=== PATIENT | male | born 1980 | race Caucasian/White ===

== ENCOUNTER 2021-05-13 22:49 | Inpatient (IN) | payer OTHER ==
[~2021-05-13] VITALS: Ht 182.9 cm; Wt 68.0 kg
--- NOTE | ~2021-05-13 | HC ---
[facility] [address] [place] [address] CONSULTATION Name: REFUGIO BOBBY Room #: 361-P [facility] IN ..#: [id number] Admission: 05/14/21 Attend Phys: Dima Shipman MD Discharge: Date of : 76 Report #: [id number] THIS REPORT FOR: cc: FAM - Family physician unknown FAM - Family physician unknown Joaquim Ramos MD ~ DATE OF SERVICE: 05/16/2021 HISTORY OF PRESENT ILLNESS: The patient is a 40-year-old white male who was admitted with chest pain, stuttering or dysarthric speech and left arm tremor and weakness. CTA was negative. MRI of the brain was negative. He was noted to have a history of paroxysmal atrial fibrillation, now in normal sinus rhythm. Neurology is involved. We are seeing him in rehabilitation medicine consultation. 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 He was placed on Eliquis for atrial fibrillation. There is prior history of a loop recorder that is noted and he also was noted to have an ORIF of the right femur and a colostomy takedown. MEDICATIONS: Please see the full medication listing. 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 He lives with a female significant other and their 4-year-old daughter. The female significant other is a traveling nurse and the 4-year-old daughter is currently staying with the significant other's mother. The patient did not utilize an assistive device, premorbidly. REVIEW OF SYSTEMS: No current complaints of chest pain, shortness of breath or abdominal discomfort. PHYSICAL EXAMINATION: GENERAL: A 40-year-old male, in no obvious distress. VITAL SIGNS: Temperature 36.9, pulse 80, respirations 16, blood pressure 126/88. HEENT: He has poor dentition. Facies appeared symmetric. NEUROLOGIC: He is alert, oriented. He has stuttering type of speech. He has continuous tremoring of the left upper extremity with the hand in a fisted position. I was able to loosen the fingers and taken through gentle passive range of motion, but he continued with the tremoring. It was not a pill rolling tremor and the tone was not increased, but the tremulousness was throughout the left upper extremity proximal and distal. He had functional range of motion. Strength was somewhat difficult to test as he had difficulty doing volitional manual muscle testing because of the tremoring. He had functional range of [facility] [address] [place] [address] CONSULTATION Name: REFGUIO BOBBY Room #: 361-[facility] IN M.R.#: [id number] Admission: 05/14/21 Attend Phys: Dima Shipman MD Discharge: Date of : 76 Report #: [id number] motion and strength of the right upper extremity and right lower extremity. Left lower extremity, there was no tremoring, but he was noted to have some weakness, probably a grade 4-/5 to 4/5. Tone appeared to be intact, left lower extremity as well as right upper and lower extremity. Functionally, he was min assist sit to stand and gait was min assist 14 feet, pushing the IV. ASSESSMENT: A 40-year-old white male with the following problem list: 1. Left upper extremity tremor with stuttering/dysarthria of uncertain etiology. Noted to have stroke-like symptoms with dysarthria and left upper extremity weakness with a history of transient ischemic attacks. Neurology is involved. 2. Chest pain. Cardiology has been involved. He is noted to now be in normal sinus rhythm. 3. Atrial fibrillation in the past, has been on long-term anticoagulation. 4. Hypertension. 5. Hyperlipidemia. 6. Prior history of hemiplegic migraine per report. 7. History of cholecystectomy. PLAN: Occupational therapy is to evaluate. We will need to see how he does in physical therapy. Neurologic workup is still underway. Cardiology is assisting. We will need to see how he does in his therapies and further assess his rehab needs from there. We will be glad to follow along with you. By: [id number] Joaquim Ramos MD /nt
[~2021-05-13 22:49] MED LIST: APAP500 PO; ASPIR-LOW81 MG PO; ASPIRIN EC325 M1 PO; ASPIRIN325 PO; BACTRIM DS TAB1 EACH PO; CIPRO500 MG PO; CIPROFLOXACIN500 M1 PO; COLACE100 MG PO; EXCEDRIN MIGRA1 EAC1 PO; FLAGYL500 MG PO; FLECAINIDE ACE100 MG PO; FLECAINIDE ACE150 MG PO; FLECAINIDE ACET50 M2 PO; FLEXERIL PO; FLORINEF ACETA0.1 MG PO; HYDROCODON-ACE1 EAC7 PO; HYDROCODONE-AP1 EAC6 PO; IBUPROFEN 200200 M1; IBUPROFEN 200200 M1 PO; KEFLEX500 MG PO; LANOXIN 0.120.125 M1 PO; LANOXIN 0.250.25 M1 PO; MEDROLDOSEPACK PO; METOPROLOL SUCC25 M1 PO; NAPROSYN500 MG PO; NICOTINE TRANSD14 M1 TRANSDERM; NORCO 5-325 TA1 EACH PO; ONDANSETRON HCL4 M2 PO; PAXIL10 MG; PERCOCET 5-3251 EACH PO; PHENERGAN 25 MG25 M1 PO; PROMS25 WY RECTAL; REGLAN 10 MG TA10 MG PO; TRAMADOL 50 MG50 MG PO; TYLOPHEN500 MG; XARELTO1 EACH PO; ZOFRAN ODT4 MG PO; [UNRECOGNIZED DRUG - REMARK]
[2021-05-13 23:17] VITALS: BP 164/91
[2021-05-13 23:22] LABS: ABSOLUTE NEUTROPHILS 5.1 thou/uL (1.4-8.2); BASOPHILS 0.6 % (0.0-2.0); EOSINOPHILS 0.7 % (0.0-3.0); HEMATOCRIT 41.8 % (42.0-52.0); HEMOGLOBIN 14.2 gm/dL (14.0-18.0); LYMPHOCYTES 27.7 % (24.0-44.0); MCH 29.9 pg (26.0-34.0); MCHC 33.9 g/dL (28.0-37.0); MCV 88.3 fL (80.0-100.0); MONOCYTES 10.4 % (1.0-8.0); PLATELET COUNT 240 thou/uL (150-400); POLYS 60.6 % (36.0-66.0); RBC 4.74 mil/uL (4.50-6.00); RDW 13.2 % (10.5-14.5); WBC 8.3 thou/uL (4.0-11.0)
[2021-05-13 23:27] LABS: CALCIUM 8.5 mg/dL (8.5-10.1); POTASSIUM 3.3 mmol/L (3.5-5.1)
[2021-05-13 23:37] LABS: ALBUMIN 3.7 g/dL (3.4-5.0); TOTAL BILIRUBIN 0.4 mg/dL (0.2-1.0); TOTAL PROTEIN 6.6 g/dL (6.4-8.2)
[2021-05-13 23:39] LABS: APTT 24.6 Seconds (24.5-32.8); PROTIME 10.9 Seconds (10.5-12.1)
[2021-05-14 06:25] LABS: CHOLESTEROL 130 mg/dL (<200); HDL CHOLESTEROL 34 mg/dL (>40); LDL CHOLESTEROL 76 mg/dL (<100); TC:HDL 3.8 Ratio (Not establshd); TRIGLYCERIDE 100 mg/dL (<150); VLDL 20 mg/dL (<40)
[2021-05-14 07:52] VITALS: BP 109/67
[2021-05-14 08:10] VITALS: BP 140/93
[2021-05-14] MEDS ORDERED: ELIQUIS5 MG PO (09:37)
[2021-05-14 09:51] LABS: HEMOGLOBIN 14.7 gm/dL (14.0-18.0); MCH 29.9 pg (26.0-34.0); MCHC 33.3 g/dL (28.0-37.0); MCV 89.6 fL (80.0-100.0); RBC 4.91 mil/uL (4.50-6.00); RDW 13.3 % (10.5-14.5); WBC 6.7 thou/uL (4.0-11.0)
[2021-05-14 10:00] LABS: CALCIUM 8.4 mg/dL (8.5-10.1); CREATININE 0.9 mg/dL (0.7-1.3); MAGNESIUM 2.2 mg/dL (1.8-2.4)
[2021-05-14 10:11] LABS: POTASSIUM 4.3 mmol/L (3.5-5.1)
--- NOTE | 2021-05-14 11:33 | NUR ---
REFERRAL FOR DR. MAGUIRE RECEIVED. CHART REVIEWED WITH DR. MAGUIRE BY EMS MANAGER THIS DATE. PATIENT DOES HAVE PT/OT ORDERS BUT NO EVALUATIONS COMPELTED AT THIS TIME. CHART ALSO INDICATES PATIENT IS PATIENT PAY. WILL REVIEW PATIENT AGAIN ON SUNDAY, MAY 16, AND ALSO GET FURTHER CLAIRIFICATION TO PATIENT'S PAYOR SOURCE AT THAT TIME.
[2021-05-14 11:40] VITALS: BP 134/85
--- NOTE | 2021-05-14 13:59 | NUR ---
ADMISSION NOTE: PT ADMIITED ON 361, ALERT AND ORIENTED X4, SPEECH SLURRED. LEFT ARM WEAKNESS, PT ON ABLE TO GROUP ACTIVITIES AIDE OR MOVE ARM. TREMORS ON THE ARM. PT STATED HIS LEFT EYE IS A LITTLE BIT BLURRY WELL. NIHS SCALE ASSESSMENT BEING DONE EVERY 4 HOURS. ASSESSMENT AND ADMISSION COMPLETED. SKIN INTACT. IV FLUIDS RUNNING PER ORDER. PT HAS AN ORDER FOR MRI, ROUTINE. WAITING ON DR. CONTE TO COME SEE PT. PT USES URINAL. FALL PRECAUTIONS IN PLACE. PT PARTNER CALLED AND MESSAGE LEFT PER PT REQUEST. DENIES ANY NEEDS MARK, WILL CONTINUE TO MONITOR
[2021-05-14 15:17] VITALS: BP 132/82
[2021-05-14 20:03] VITALS: BP 131/88
[2021-05-14 23:32] VITALS: BP 137/71
--- NOTE | 2021-05-15 02:17 | NUR ---
PT ALERT AND ORIENTED X4. VSS AFEBRILE. UNLABORED ON RA. NO C/O PAIN. NO S/S DISTRESS. SPEECH IS SLURRED. LEFT ARM WEAKNESS NOTED AND MILD WEAKNESS NOTED TO LLE. PT AWARE OF FALL PRECAUTIONS. C/O LOPEZ. MEDICATED WITH 2 TYLENOL. PT FELL ASLEEP SHORTLY AFTER. SEE NIH RESULTS. BED DOWN CALL LIGHT IN REACH. WILL CONTINUE TO MONITOR PT FOR CHANGES.
[2021-05-15 04:08] LABS: HEMATOCRIT 44.6 % (42.0-52.0); HEMOGLOBIN 14.9 gm/dL (14.0-18.0); MCH 29.6 pg (26.0-34.0); MCHC 33.4 g/dL (28.0-37.0); MCV 88.6 fL (80.0-100.0); RBC 5.04 mil/uL (4.50-6.00); RDW 13.5 % (10.5-14.5); WBC 7.4 thou/uL (4.0-11.0)
[2021-05-15 04:22] LABS: CALCIUM 8.2 mg/dL (8.5-10.1); CREATININE 0.8 mg/dL (0.7-1.3); POTASSIUM 3.9 mmol/L (3.5-5.1)
[2021-05-15 05:59] VITALS: BP 108/62
--- NOTE | 2021-05-15 07:24 | NUR ---
VSS AFEBRILE THIS AM. PT DENIED FEELING ANY CHANGES THIS AM. NIH REMAINS UNCHANGED.
[2021-05-15 08:53] VITALS: BP 103/62
[2021-05-15 12:07] VITALS: BP 129/84
[2021-05-15 15:14] VITALS: BP 141/92
--- NOTE | 2021-05-15 15:26 | NUR ---
PT ALERT AND ORIENTED TIMES FOUR VSS. IVF INFUSING PER ORDER. PT DENIES PAIN/SOA. PT TOLERATES MEDS AND MEALS. NIH SCORE 5. WILL CONTINUE TO MONITOR.
[2021-05-15 19:28] VITALS: BP 128/83
--- NOTE | 2021-05-15 21:32 | 2DMMODE ---
[facility] [place] [address] 2 D/M-MODE ECHOCARDIOGRAM Name: REFUGIO BOBBY Room #: 361-P ADM IN M.R.#: [id number] Admission: 05/14/21 Attend Phys: Giovanna Madsen Discharge: Date of : 78 Report #: [id number] THIS REPORT FOR: cc: FAM - Family physician unknown FAM - Family physician unknown Tl Colon MD [facility] ~ APPROVED REPORT Study performed: 05/14/2021 11:38:23 EXAM: Comprehensive 2D, Doppler, and color-flow Echocardiogram Patient Location: In-Patient Room #: 361 Status: routine BSA: 2.35 HR: 69 bpm BP: 140/93 mmHg Rhythm: NSR Other Information Study Quality: Adequate Indications CVA/TIA Atrial Fibrillation Chest Pain 2D Dimensions LVEF(%): 46.00 (>50%) IVSd: 1.00 (7-11mm) LVOT Diam: 2.30 (18-24mm) LVDd: 5.70 mm PWd: 0.70 (7-11mm) Ascending Ao: 3.50 (22-36mm) LVDs: 4.30 (25-40mm) Left Atrium: 3.40 (27-40mm) Aortic Root: 3.10 mm Volumes Left Atrial Volume (Systole) Biplane LA Volume: 42.00 mL LA ESV Index: 17.67 mL/m2 Aortic Valve AoV Peak Romain.: 1.49 m/s LVOT Max V: 0.85 m/s [facility] [address] [place] [address] 2 D/M-MODE ECHOCARDIOGRAM Name: DIAMANTEREFUGIO Room #: 361-P [facility] IN .R.#: [id number] Admission: 05/14/21 Attend Phys: Giovanna Smith Discharge: Date of : 78 Report #: [id number] Mitral Valve E/A Ratio: 1.5 MV E Max Romain.: 0.85 m/s MV A Romain.: 0.58 m/s TDI E/Medial E': 7.08 E': 0.17 Medial E' Romain.: 0.12 m/s Pulmonary Valve PV Peak Romain.: 0.96 m/s Tricuspid Valve TR Peak Romain.: 2.45 m/s RAP Estimate: 7.00 mmHg TR Peak Gr.: 23.98 mmHg RVSP: 30.00 mmHg Left Ventricle Left ventricle is borderline dilated. There is normal LV segmental wall motion. There is normal left ventricular wall thickness. Left ventricular systolic function is normal. The left ventricular ejection fraction is within the normal range. LVEF is 45-50%.global Right Ventricle The right ventricle is normal size. The right ventricular systolic function is normal. Atria The left atrium size is normal. The right atrium size is normal. Aortic Valve The aortic valve is normal in structure. No aortic regurgitation is present. There is no aortic valvular stenosis. Mitral Valve The mitral valve is normal in structure. There is no mitral valve regurgitation noted. No evidence of mitral valve stenosis. Tricuspid Valve The tricuspid valve is normal in structure. Trace to mild tricuspid regurgitation. PAP 30 mmHg Pulmonic Valve The pulmonary valve is normal in structure. Trace to mild pulmonic regurgitation. [facility] [address] [place] [address] 2 D/M-MODE ECHOCARDIOGRAM Name: REFUGIO BOBBY Room #: 361-P [facility] IN .R.#: [id number] Admission: 05/14/21 Attend Phys: Giovanna Smith Discharge: Date of : 78 Report #: [id number] Great Vessels The aortic root is normal in size. IVC is normal in size and collapses >50% with inspiration. Pericardium There is no pericardial effusion. There is no pleural effusion. <Conclusion> Left ventricle is borderline dilated. LVEF is 45-50%.global The right ventricle is normal size. The left atrium size is normal. The aortic valve is normal in structure. There is no mitral valve regurgitation noted. Trace to mild tricuspid regurgitation. PAP 30 mmHg The aortic root is normal in size. There is no pericardial effusion. <ELECTRONICALLY SIGNED> By: Tl Colon MD, FACC 05/15/212131 31 2132 Tl Colon MD, FACC /INF
--- NOTE | 2021-05-16 00:19 | NUR ---
PT ALERT AND ORIENTED X4. VSS AFEBRILE. SPEECH STILL SLURRED. TREMOR NOTED TO LEFT ARM WHEN PT REALIZED NS WAS IN THE ROOM. PT STATES HE CAN NOT RAISE LEFT ARM. DAY SHIFT NS STATED IN REPORT SHE SAW HIM MOVE HIS LEFT ARM AND CAN LIFT IT. FOR ME HE WOULD NOT LIFT IT OFF BED. THIS WAS NOT A CHANGE FROM YESTERDAY. YESTERDAY HE STATED HE HAD NO SENSATION FROM LEFT SHOULDER DOWN TO FINGER TIPS WHICHIS THE SAME FOR MY CURRENT NIH ASSESMENTS TONIGHT. SLIGHT LLE DRIFT NOTED YET PT IS ABLE TO AMBULATE TO BATHROOM ACCORDING TO NS ON DAY SHIFT. PT C/O COUGH. COUGH MEDICINE GIVEN AND PAIN PILLS FOR UMBILICAL AREA PAIN PT STATED FROM COUGHING. PT FELL ASLEEP AFTER PAIN MEDS. WILL CONTINUE TO MONITOR PT FOR CHANGES.
[2021-05-16 01:06] LABS: GLYCOHEMOGLOBIN (HGB A1C) 5.1 % (4.8-5.6)
[2021-05-16 05:37] VITALS: BP 135/67
--- NOTE | 2021-05-16 07:25 | EKG ---
[address] [address] ELECTROCARDIOGRAM REPORT Name: REFUGIO BOBBY MARCIN Room #: 361-P ADM IN M.R.#: [id number] Admission: 05/14/21 Attend Phys: Giovanna Madsen Discharge: Date of : 78 Report #: [id number] [facility] ED Test Date: 2021-05-13 Test Time: 23:02:54 Pat Name: REFUGIO BOBBY Department: Room: 361 Gender: M Kaia[place]: paula : 1980 Requested By: Carlitos Spivey Order Number: [id number] MD: Joss Caceres Measurements Intervals [place] Rate: 101 P: [place]: QRS: 72 QRSD: 104 T: 61 QT: 354 QTc: 459 Interpretive Statements SINUS TACHYCARDIA Borderline repolarization abnormality Artifact in lead(s) I,III,aVR,aVL,aVF,V2 and baseline wander in lead(s) I,II,III,aVR,aVF,V2,V3,V4 Compared to ECG 09/07/2015 00:45:09 ST (T wave) deviation no longer present Electronically Signed On 05-16-2021 7:25:11 CDT by Joss Caceres [email or web address] <ELECTRONICALLY SIGNED> By: Joss Caceres MD, FACC 05/16/21 0725 01 01 Joss Caceres MD, FACC /EPI
--- NOTE | 2021-05-16 07:26 | EKG ---
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
[2021-05-16 07:43] VITALS: BP 126/88
--- NOTE | 2021-05-16 08:44 | NUR ---
LAST NIH ASSESSMENT PT WAS ABLE TO HOLD LLE UP WITH NO DRIFT. NO OTHER CHANGES IN ASSESSMENT.
[2021-05-16 11:52] VITALS: BP 140/91
--- NOTE | 2021-05-16 14:34 | NUR ---
CARE ASSUMED THIS AM, PT ALERT AND ORIENTED X4, DENIES ANY PAIN. CONTINUES TO HAVE LEFT ARM WEAKNESS AND TREMORS. CONTINUE TO HAVE NUMBNESS AND TINGLING ON THAT ARM. NIH AROUND 5. UP TO BATHROOM WITH 1 ASSIST. DENIES ANY NEEDS , WILL CONTINUE TO MONITOR
[2021-05-16 14:36] VITALS: BP 127/72
--- NOTE | 2021-05-16 15:52 | NUR ---
INITIAL ASSESSMENT: Received consult for discharge planning. Pt was admitted from home due to possible CVA. Pt with left sided weakness. Neuro and psych consulted. 5N is following for possible admission to in acute rehab. Pt does not have health insurance. [employer] [facility] to screen pt for possible Medicaid application. Pt is alert/orientated x 4. Prior to admission, pt was independent with ADLs. No use of DME. Pt is employed and lives at home with family. Pt's s/o is a nursing that is completing a travel assignment and is not currently in town. Awaiting input from neuro and psych. DANELLE discussed case with occupational rehabilitation aide. SW is following to assist as needed with discharge planning.
[2021-05-16 19:35] VITALS: BP 114/81
[2021-05-17 04:05] VITALS: BP 112/75
--- NOTE | 2021-05-17 05:14 | NUR ---
Patient making slow progress towards outcome goals. Neuro unchanged. Awaiting records from . Right thigh pain treated with Tylenol and heating pad, patient now asleep. Vital signs stable. High fall risks, fall precautions in place.
[2021-05-17 07:46] VITALS: BP 125/80
[2021-05-17 10:13] LABS: HEMATOCRIT 46.7 % (42.0-52.0); HEMOGLOBIN 15.7 gm/dL (14.0-18.0); MCH 29.6 pg (26.0-34.0); MCHC 33.5 g/dL (28.0-37.0); MCV 88.4 fL (80.0-100.0); RBC 5.29 mil/uL (4.50-6.00); RDW 13.6 % (10.5-14.5); WBC 6.3 thou/uL (4.0-11.0)
--- NOTE | 2021-05-17 11:50 | NUR ---
SW reviewed chart and spoke with nursing and attending physician. Psych consult pending. Pt is progressing towards goals for discharge. [employer] to screen pt for [place]-Medicaid application. Discharge home is anticipated for tomorrow. SW to follow up with pt to discuss discharge plan.
[2021-05-17 15:07] VITALS: BP 118/58
--- NOTE | 2021-05-17 17:57 | NUR ---
67 M, PT AOX4, MOVING ALL EXTREMITIES, AMBULATING IN THE ROOM W/ MINIMAL ASSISTANCE. SEEN BY PT.
[2021-05-17 19:52] VITALS: BP 114/72
[2021-05-18 04:37] VITALS: BP 94/54
[2021-05-18 07:16] VITALS: BP 119/68
--- NOTE | 2021-05-18 07:39 | NUR ---
Pt. requested sleep med .LANGUAGE THERAPIST notified and order received. Melatonin given with some help. Still has left arm tremors and speech is clear. Aware that he needs to call for assistance if needed. Tolerating room air well with no respiratory distress. Hoping to go home today. Making progress towards care plan goals.
[2021-05-18] MEDS ORDERED: METOPROLOL SUCC25 M1 PO (07:57)
--- NOTE | 2021-05-18 10:09 | EEG ---
[facility] [address] [place] [address] ELECTROENCEPHALOGRAM Name: REFUGIO BOBBY Room #: 361-P ADM IN M.R.#: [id number] Admission: 05/14/21 Attend Phys: Dima Shipman MD Discharge: Date of : 78 Report #: [id number] THIS REPORT FOR: //name// DATE OF SERVICE: 05/14/2021 This patient is being evaluated for tremors. EEG was done by placing the electrode by standard 10-20 system of electrode placement. Both referential and sequential montages were used for recording. Background activity in this patient's EEG is about 11 Hz and 40 microvolt. There is a symmetrical activity. Photic stimulation is unremarkable. The patient became drowsy that is associated with bilateral slowing and vertex sharp waves. Throughout the record, no active epileptiform activity was noticed. IMPRESSION: This patient's EEG is unremarkable. Thank you very much for this referral. <ELECTRONICALLY SIGNED> By: Gage Farmer MD 05/18/21 1009 0854 0905 Gage Farmer MD /nt
--- NOTE | 2021-05-18 10:09 | HC ---
[facility] [place] [address] CONSULTATION Name: REFUGIO BOBBY Room #: 361-P ADM IN .R.#: [id number] Admission: 05/14/21 Attend Phys: Dima Shipman MD Discharge: Date of : 78 Report #: [id number] THIS REPORT FOR: cc: FAM - Family physician unknown FAM - Family physician unknown Gage Farmer MD ~ DATE OF SERVICE: 05/14/2021 DATE OF SERVICE: 05/14/2021 HISTORY OF PRESENT ILLNESS: This is a 40-year-old male patient who was evaluated by me for somewhat of an unusual history. He gives a history that he had a stroke. He said he was at [facility], but I do not have any records in that regard. As I understand from him it cause him hemianopsia on the left side, which partly recovered, but he continued to have some residual problem with that. He said he was started on anticoagulation, but anticoagulation was discontinued. I asked him why it was discontinued if he had any atrial fibrillation and his stroke. He said he did not know. In any event, anticoagulation was restarted recently. He said he did not have any stroke that time when it was started, but he does not know why it was started. Now, he is admitted with pretty unusual kind of symptoms. He was complaining of some chest pain. He said his speech is affected. He said he had left arm weakness and left arm tremor. He presented to Emergency Room with these symptoms yesterday evening. He was admitted from the Emergency Room and those notes were reviewed and today routine neurological consultation was requested for further neurological suggestions. He said his speech was normal yesterday and these symptoms started yesterday evening and he was taking his Eliquis faithfully. He is complaining of tremor on the left side and he is complaining that he cannot talk properly. He also has chest pain. REVIEW OF SYSTEMS: Indicates he said he was at work when it happened. He denies any history of anxiety and depression. He said he had migraine and the records indicate that he had hemiplegic migraine. He does not know anything about it. He said he had TIAs in the past, even before he had occipital lobe stroke, but he does not know how the TIA affected him. He had a history of cholecystectomy, upper respiratory infection, high cholesterol. He has some metal rods and a loop recorder, but I do not know how. He has all those things if he has a documented atrial fibrillation and why he has that. This was his relevant 14-point review of system. PAST MEDICAL HISTORY: Positive for occipital lobe CVA. FAMILY HISTORY: Negative for any early age stroke. SOCIAL HISTORY: He says he does not smoke. [facility] [address] [place] [address] CONSULTATION Name: REFUGIO BOBBY Room #: 361-P [facility] IN M.R.#: [id number] Admission: 05/14/21 Attend Phys: Dima Shipman MD Discharge: Date of : 76 Report #: [id number] PHYSICAL EXAMINATION: Indicates he was sleepy, but he woke up. When he woke up, he was able to talk and communicate. He provided his own history. He knew what month it was. Cranial nerve examination, he says he has visual deficit on the left visual field, difficult for me to confirm. He moves all 4 extremities, but he is having almost a constant tremor on the left side. That makes it difficult to check the strength. His sensation the best I can tell position sense appear intact. His reflexes look symmetrical. There is really no meningeal sign in this patient. I could not look at the fundus. Cardiac examination appear noncontributory. There is no respiratory difficulty. VITAL SIGNS: Blood pressure is 132/82, respirations 16, pulse is 96, temperature is 98.4. IMPRESSION AND PLAN: Pretty confusing history in this patient. He claims that he had an occipital lobe stroke, secondary to atrial fibrillation, but then after being on anticoagulation for some time, it was discontinued. That is a pretty unusual history because that is typically an indication for lifelong anticoagulation, especially if he had TIAs in the past also. Then, his history is further confusing because he had chest pain and he has a tremor. Those things can occur with a brainstem stroke, but not the chest pain, not this kind of tremor is very typical for that. This patient needs further workup to address all his questions. The best test will be an MRI. He had a plate and question of a loop recorder. I have called the MRI people and asked him to check with Radiology to see if MRI can be done. If MRI can be done, then I would like to get an MRI done to clarify the situation and we may have to get the record from [facility] also. When he came to Emergency Room, he was on anticoagulation and therefore, he was not a TPA candidate. They did a CT angiogram, which showed no large vessel occlusion and therefore, he was not a candidate for any intervention. The main workup would be directed to clarify the diagnosis and give him some future direction. Thank you very much for this referral. <ELECTRONICALLY SIGNED> By: Gage Farmer MD 05/18/21 1009 1526 Gage Farmer MD /kristyn
--- NOTE | 2021-05-18 14:10 | NUR ---
SW reviewed chart and spoke with nursing and attending physician. Pt is progressing towards goals for discharge. Ortho consulted today and xray taken earlier today. Pt may be ready to discharge home later today. DANELLE met with pt at bedside. Introduced role of SW. Pt is alert/orientated x 4. Pt reports he lives at home. Pt's girlfriend is a leisure travel agent and is currently in [place]. She will be home tomorrow. SW discussed discharge needs with pt. Pt confirms he does not have health insurance. [employer] to screen pt. Prior to admission, pt was independent with ADLs. No use of DME. Pt does not currently have a PCP. SW offered to have meds filled at [facility] pharmacy when discharged. Pt requests to have scripts sent to the [facility] in [place]. Pt will need a cab ride home if discharged today. Cab Voucher # [id number] provided. Health Resource Guide provided for pt to review, to establish primary care. No additional SW needs identified at this time, but is available to assist should needs arise.
[2021-05-18 15:28] VITALS: BP 127/72
[2021-05-18] MEDS ORDERED: VITAMIN D3250 MC2 PO (15:43)
[2021-05-18 15:59] VITALS: BP 127/72
--- NOTE | 2021-05-18 16:26 | NUR ---
DISCHARGE NOTE: DISCHARGE INSTRUCTIONS WENT THOUGH WITH PT, AWARE OF NEW MED INFO. PT IS AWARE OF OUTPT APPOINTMENT. ALL BELONGING WITH PT. IV D/C. DENIES ANY QUESTIONS.
== END 2021-05-18 16:21 | disposition home or self-care (01) | DRG 93 ==
LOC: ER 22:49 → EROBS 05-14 01:02 → 3W 05-14 01:02
PROVIDERS: Emergency Medicine; Nurse Practitioner Adult Health; Nurse Practitioner Family; ADMIT Internal Medicine; ATTEND Internal Medicine
DX: R47.1 Dysarthria and anarthria (principal); E78.00 Pure hypercholesterolemia, unspecified; S70.11XA Contusion of right thigh, initial encounter; K21.9 Gastro-esophageal reflux disease without esophagitis; E78.5 Hyperlipidemia, unspecified; I10 Essential (primary) hypertension; E87.6 Hypokalemia; R25.1 Tremor, unspecified; R47.81 Slurred speech; I48.0 Paroxysmal atrial fibrillation; Z20.822 Contact with and (suspected) exposure to COVID-19; Z86.73 Personal history of transient ischemic attack (TIA), and cerebral infarction without residual deficits; Z90.49 Acquired absence of other specified parts of digestive tract; Z93.3 Colostomy status; Z87.891 Personal history of nicotine dependence; Z88.8 Allergy status to other drugs, medicaments and biological substances; Z79.01 Long term (current) use of anticoagulants; X58.XXXA Exposure to other specified factors, initial encounter; Y93.89 Activity, other specified; Y92.89 Other specified places as the place of occurrence of the external cause; Y99.8 Other external cause status
CPT/HCPCS: 10779; 10879

== ENCOUNTER 2021-06-21 17:55 | Emergency (ER) | payer OTHER ==
[~2021-06-21] VITALS: Ht 180.3 cm; Wt 104.3 kg
[~2021-06-21 17:55] MED LIST changes: +ELIQUIS5 MG PO; +VITAMIN D3250 MC2 PO
[2021-06-21 19:02] LABS: ABSOLUTE NEUTROPHILS 11.6 thou/uL (1.4-8.2); BASOPHILS 0.7 % (0.0-2.0); EOSINOPHILS 0.2 % (0.0-3.0); HEMATOCRIT 43.7 % (42.0-52.0); HEMOGLOBIN 14.5 gm/dL (14.0-18.0); LYMPHOCYTES 9.4 % (24.0-44.0); MCH 28.9 pg (26.0-34.0); MCHC 33.3 g/dL (28.0-37.0); MONOCYTES 7.2 % (1.0-8.0); PLATELET COUNT 247 thou/uL (150-400); POLYS 82.5 % (36.0-66.0); RBC 5.03 mil/uL (4.50-6.00); RDW 13.2 % (10.5-14.5); WBC 14.1 thou/uL (4.0-11.0)
[2021-06-21 19:16] LABS: CALCIUM 8.7 mg/dL (8.5-10.1); CREATININE 0.9 mg/dL (0.7-1.3); POTASSIUM 3.5 mmol/L (3.5-5.1)
[2021-06-21] MEDS ORDERED: XANAX 0.5 MG0.5 MG PO (19:23)
[2021-06-21 20:01] VITALS: BP 130/83
--- NOTE | 2021-06-22 08:48 | EKG ---
[place] [address] 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
--- NOTE | 2021-06-22 08:50 | EKG ---
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: mpark : 1980 Requested By: Jordy Abbott Order Number: [id number] MD: González Torres Measurements Intervals [place] Rate: 100 P: 0 [place]: 61 QRS: 152 QRSD: 149 T: 27 QT: 330 QTc: 426 Interpretive Statements Marked baseline artifact limits interpretation Sinus rhythm Compared to ECG 06/21/2021 17:59:56 No significant change was found Electronically Signed On 06-22-2021 8:50:38 SENIOR TERADATA DEVELOPER by González Torres [email or web address] <ELECTRONICALLY SIGNED> By: González Torres MD, [facility] 06/22/21 0850 [id number] González Torres MD, FACC /EPI
== END 2021-06-21 20:22 | disposition home or self-care (01) ==
LOC: ER 17:55
PROVIDERS: Emergency Medicine
DX: R00.2 Palpitations (principal); I48.91 Unspecified atrial fibrillation; E78.00 Pure hypercholesterolemia, unspecified; K21.9 Gastro-esophageal reflux disease without esophagitis; Z87.891 Personal history of nicotine dependence; Z88.6 Allergy status to analgesic agent; Z79.899 Other long term (current) drug therapy; Z86.73 Personal history of transient ischemic attack (TIA), and cerebral infarction without residual deficits; Z90.49 Acquired absence of other specified parts of digestive tract

== ENCOUNTER → 2021-06-30 | Emergency (ER) | payer OTHER ==
[~2021-06-30] VITALS: Ht 182.9 cm; Wt 104.3 kg
[~2021-06-30] MED LIST changes: +IRON18 M1 PO; +XANAX 0.5 MG0.5 MG PO
[2021-07-01 00:17] LABS: HEMATOCRIT 41.2 % (42.0-52.0); HEMOGLOBIN 13.5 gm/dL (14.0-18.0); MCHC 32.7 g/dL (28.0-37.0); MCV 88.6 fL (80.0-100.0); RBC 4.65 mil/uL (4.50-6.00); RDW 13.3 % (10.5-14.5); WBC 6.8 thou/uL (4.0-11.0)
[2021-07-01 00:26] LABS: CALCIUM 8.7 mg/dL (8.5-10.1); CREATININE 1.1 mg/dL (0.7-1.3); POTASSIUM 3.5 mmol/L (3.5-5.1)
[2021-07-01 01:19] VITALS: BP 112/79
== END ==
LOC: ER 23:26
PROVIDERS: Student in an Organized Health Care Education/Training Program
DX: G43.909 Migraine, unspecified, not intractable, without status migrainosus (principal); A08.4 Viral intestinal infection, unspecified; Z87.891 Personal history of nicotine dependence

== ENCOUNTER 2021-08-12 01:44 | Emergency (ER) | payer OTHER ==
[~2021-08-12] VITALS: Ht 182.9 cm; Wt 104.3 kg
[~2021-08-12 01:44] MED LIST changes: -IRON18 M1 PO
[2021-08-12 02:21] LABS: ABSOLUTE NEUTROPHILS 4.4 thou/uL (1.4-8.2); BASOPHILS 0.4 % (0.0-2.0); EOSINOPHILS 1.6 % (0.0-3.0); HEMATOCRIT 44.3 % (42.0-52.0); HEMOGLOBIN 14.9 gm/dL (14.0-18.0); LYMPHOCYTES 28.8 % (24.0-44.0); MCH 29.4 pg (26.0-34.0); MCHC 33.6 g/dL (28.0-37.0); MCV 87.4 fL (80.0-100.0); MONOCYTES 11.1 % (1.0-8.0); PLATELET COUNT 244 thou/uL (150-400); POLYS 58.1 % (36.0-66.0); RBC 5.06 mil/uL (4.50-6.00); RDW 13.5 % (10.5-14.5); WBC 7.6 thou/uL (4.0-11.0)
[2021-08-12 02:40] LABS: CALCIUM 8.5 mg/dL (8.5-10.1); CREATININE 0.9 mg/dL (0.7-1.3); POTASSIUM 3.5 mmol/L (3.5-5.1)
[2021-08-12 02:49] LABS: MAGNESIUM 1.9 mg/dL (1.8-2.4)
[2021-08-12 03:55] VITALS: BP 116/69
--- NOTE | 2021-08-12 10:00 | EKG ---
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: : 1980 Requested By: Desean Euceda Order Number: [id number] MD: Joss Caceres Measurements Intervals [place] Rate: 79 P: 66 [place]: 156 QRS: 49 QRSD: 108 T: 32 QT: 404 QTc: 464 Interpretive Statements Sinus rhythm ST elev, probable normal early repol pattern Compared to ECG 06/21/2021 18:37:34 ST (T wave) deviation now present Electronically Signed On 08-12-2021 10:00:18 RN EMERGENCY by Joss Caceres [email or web address] <ELECTRONICALLY SIGNED> By: Joss Caceres MD, [facility] 08/12/21 [phone] [id number] Joss Caceres MD, FACTan /EPI
== END 2021-08-12 03:57 | disposition home or self-care (01) ==
LOC: ER 01:44
PROVIDERS: Student in an Organized Health Care Education/Training Program
DX: R00.2 Palpitations (principal); Z20.822 Contact with and (suspected) exposure to COVID-19; E78.00 Pure hypercholesterolemia, unspecified; K21.9 Gastro-esophageal reflux disease without esophagitis; G43.909 Migraine, unspecified, not intractable, without status migrainosus; Z90.49 Acquired absence of other specified parts of digestive tract; Z79.899 Other long term (current) drug therapy; Z88.8 Allergy status to other drugs, medicaments and biological substances; Z87.891 Personal history of nicotine dependence

== ENCOUNTER 2021-08-24 00:54 | Emergency (ER) | payer OTHER ==
[~2021-08-24] VITALS: Ht 182.9 cm; Wt 104.3 kg
[2021-08-24] MEDS ORDERED: IRON18 M1 PO (01:13)
== END 2021-08-24 06:00 | disposition home or self-care (01) ==
LOC: ER 00:54
DX: M79.605 Pain in left leg (principal); E78.00 Pure hypercholesterolemia, unspecified; K21.9 Gastro-esophageal reflux disease without esophagitis; G43.909 Migraine, unspecified, not intractable, without status migrainosus; Z90.49 Acquired absence of other specified parts of digestive tract; Z79.899 Other long term (current) drug therapy; Z88.8 Allergy status to other drugs, medicaments and biological substances; Z87.891 Personal history of nicotine dependence

== ENCOUNTER 2021-09-08 00:20 | Emergency (ER) | payer OTHER ==
[~2021-09-08] VITALS: Ht 182.9 cm; Wt 104.3 kg
[~2021-09-08 00:20] MED LIST changes: +IRON18 M1 PO
[2021-09-08 01:40] LABS: ABSOLUTE NEUTROPHILS 4.9 thou/uL (1.4-8.2); BASOPHILS 0.4 % (0.0-2.0); EOSINOPHILS 1.4 % (0.0-3.0); HEMATOCRIT 44.3 % (42.0-52.0); LYMPHOCYTES 20.9 % (24.0-44.0); MCH 29.2 pg (26.0-34.0); MCHC 33.8 g/dL (28.0-37.0); MCV 86.2 fL (80.0-100.0); MONOCYTES 10.7 % (1.0-8.0); PLATELET COUNT 229 thou/uL (150-400); POLYS 66.6 % (36.0-66.0); RBC 5.14 mil/uL (4.50-6.00); RDW 13.5 % (10.5-14.5); WBC 7.4 thou/uL (4.0-11.0)
[2021-09-08 01:45] LABS: CALCIUM 8.8 mg/dL (8.5-10.1); CREATININE 0.9 mg/dL (0.7-1.3); POTASSIUM 3.9 mmol/L (3.5-5.1)
[2021-09-08 01:54] LABS: MAGNESIUM 2.1 mg/dL (1.8-2.4); TOTAL BILIRUBIN 0.5 mg/dL (0.2-1.0); TOTAL PROTEIN 7.3 g/dL (6.4-8.2)
[2021-09-08 05:26] VITALS: BP 100/43
--- NOTE | 2021-09-08 07:59 | EKG ---
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 : 1980 Requested By: Arlene Page Order Number: [id number] MD: Joss Caceres Measurements Intervals [place] Rate: 90 P: 53 [place]: 158 QRS: 46 QRSD: 112 T: 21 QT: 377 QTc: 462 Interpretive Statements Sinus rhythm Ventricular trigeminy Borderline intraventricular conduction delay Baseline wander in lead(s) V2 Compared to ECG 08/12/2021 01:56:23 Ventricular premature complex(es) now present ST (T wave) deviation no longer present Electronically Signed On 09-08-2021 7:58:51 INTER FOLD ROLL CUTTER by Joss Caceres [email or web address] <ELECTRONICALLY SIGNED> By: Joss Caceres MD, [facility] 09/08/21 0758 0032 0032 Joss Caceres MD, [facility] /EPI
== END 2021-09-08 05:27 | disposition home or self-care (01) ==
LOC: ER 00:20
PROVIDERS: Emergency Medicine
DX: R06.00 Dyspnea, unspecified (principal); R22.43 Localized swelling, mass and lump, lower limb, bilateral; R00.2 Palpitations; Z20.822 Contact with and (suspected) exposure to COVID-19; E78.00 Pure hypercholesterolemia, unspecified; K21.9 Gastro-esophageal reflux disease without esophagitis; G43.909 Migraine, unspecified, not intractable, without status migrainosus; F17.210 Nicotine dependence, cigarettes, uncomplicated; Z88.6 Allergy status to analgesic agent; Z88.8 Allergy status to other drugs, medicaments and biological substances; Z90.49 Acquired absence of other specified parts of digestive tract